=== PATIENT | female | born 2000 | race Caucasian/White ===

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

== ENCOUNTER 2024-01-08 15:00 | Outpatient (CLI) | payer MEDICAID | END 2024-01-08 16:53 | disposition home or self-care (01) | LOC: LAB.N 15:00 | PROVIDERS: ATTEND Family Medicine | DX: N39.0 Urinary tract infection, site not specified (principal); J02.0 Streptococcal pharyngitis | CPT/HCPCS: 87086 ==